=== PATIENT | female | born 1955 | race Caucasian/White ===

== ENCOUNTER 2019-09-30 18:18 | Outpatient (CLI) | payer MEDICARE, OTHER | END 2019-09-30 18:19 | disposition home or self-care (01) | LOC: COV 18:18 | PROVIDERS: ATTEND Family Medicine | DX: R53.83 Other fatigue (principal); R68.83 Chills (without fever); J02.9 Acute pharyngitis, unspecified; R19.7 Diarrhea, unspecified; R09.81 Nasal congestion; R11.0 Nausea; Z20.828 Contact with and (suspected) exposure to other viral communicable diseases ==

== ENCOUNTER 2019-11-20 06:47 | Outpatient (CLI) | payer MEDICARE, OTHER ==
--- NOTE | 2019-11-20 06:52 | XRAY Report ---
PROCEDURE: Chest 2 View X-Ray INDICATIONS: CHEST PAIN TECHNIQUE: 2 view(s) of the chest. COMPARISON: None. FINDINGS: Surgical changes and devices: None. Lungs and pleura: No pleural effusions or pneumothorax. Lungs are clear. Mediastinum: Mediastinal contours are normal. Heart size is normal. Bones and chest wall: No suspicious bony abnormalities. Soft tissues appear unremarkable. IMPRESSION: Chest without acute cardiopulmonary abnormalities. Reviewed by: Seymour Ross MD on 11/20/2019 6:51 AM PDT Approved by: Seymour Ross MD on 11/20/2019 6:51 AM PDT Station ID: [id number]
== END 2019-11-20 23:59 | disposition home or self-care (01) ==
LOC: DI.WCP 06:47
PROVIDERS: ATTEND Physician Assistant Medical
DX: R07.9 Chest pain, unspecified (principal)
CPT/HCPCS: 71046

== ENCOUNTER 2019-11-20 08:00 | Outpatient (CLI) | payer MEDICARE, OTHER ==
[2019-11-20 12:25] LABS: BASOPHILS % (AUTO) 0.7 %; EOSINOPHILS # (AUTO) 0.2 10^3/uL (0.0-0.7); EOSINOPHILS % (AUTO) 3.2 %; HGB - HEMOGLOBIN 13.4 g/dL (12.0-16.0); LYMPHOCYTES # (AUTO) 1.9 10^3/uL (1.5-3.5); LYMPHOCYTES % (AUTO) 33.3 %; MEAN CORPUSCULAR HEMOGLOBIN 29.6 pg (27.0-31.0); MEAN CORPUSCULAR HGB CONC 31.3 g/dL (32.0-36.0); MEAN CORPUSCULAR VOLUME 94.5 fL (81.0-99.0); MEAN PLATELET VOLUME 10.6 fL (7.9-10.8); MONOCYTES # (AUTO) 0.5 10^3/uL (0.0-1.0); MONOCYTES % (AUTO) 8.1 %; NEUTROPHILS # (AUTO) 3.1 10^3/uL (1.5-6.6); NEUTROPHILS % (AUTO) 54.3 %; PLT - PLATELET COUNT 238 10^3/uL (130-450); RED BLOOD COUNT 4.53 10^6/uL (4.20-5.40); RED CELL DISTRIBUTION WIDTH 12.5 % (12.0-15.0); WHITE BLOOD COUNT 5.7 x10^3/uL (4.8-10.8)
[2019-11-20 12:45] LABS: ALBUMIN 4.2 g/dL (3.2-5.5); ALBUMIN/GLOBULIN RATIO 1.3 (1.0-2.2); ALKALINE PHOSPHATASE 72 IU/L (42-121); ALT ALANINE AMINOTRANSFERASE 37 IU/L (10-60); AST ASPARTATE AMINOTRANSFERASE 26 IU/L (10-42); BILIRUBIN,TOTAL 0.6 mg/dL (0.2-1.0); BUN - BLOOD UREA NITROGEN 21 mg/dL (6-20); CALCIUM 9.4 mg/dL (8.5-10.3); CARBON DIOXIDE - CO2 23 mmol/L (21-32); CHLORIDE 108 mmol/L (101-111); CHOL/HDL RATIO 5.5 (<4.4); CHOLESTEROL 233 mg/dL; GLUCOSE 126 mg/dL (70-100); HDL CHOLESTEROL 42 mg/dL; LDL CHOLESTEROL,CALCULATED 162 mg/dL; LDL/HDL RATIO 3.9 (<4.4); SODIUM 140 mmol/L (135-145); TOTAL PROTEIN 7.4 g/dL (6.7-8.2); VLDL CHOLESTEROL 29 mg/dL
[2019-11-20 12:55] LABS: CREATININE,URINE 123.6 mg/dL; MICROALBUM/CREATININE RATIO,UR 8.1 ug/mg (<30.0)
[2019-11-20 13:19] LABS: HEMOGLOBIN A1c% 7.5 % (4.27-6.07)
== END 2019-11-20 23:59 | disposition home or self-care (01) ==
LOC: LAB.WCP 08:00
PROVIDERS: ATTEND Physician Assistant Medical
DX: E11.9 Type 2 diabetes mellitus without complications (principal); I10 Essential (primary) hypertension
CPT/HCPCS: 36415; 80053; 80061; 82043; 82570; 83036; 83721; 84443; 85025

== ENCOUNTER 2019-12-18 12:40 | Outpatient (CLI) | payer MEDICARE, OTHER ==
--- NOTE | 2019-12-18 16:35 | CARDIAC PROCEDURE NOTE ---
DATE OF SERVICE: 12/18/2019 Physician: Marry Peralta MD, MERGED WITH [facility] INDICATION: Chest pain. CARDIAC RISK FACTORS: Hypertension, hyperlipidemia, postmenopausal status, diabetes, diet controlled only. PROCEDURE: After signing informed consent, the patient underwent a Mandeep protocol, that changed into a manual protocol treadmill stress test, with nuclear myocardial perfusion imaging. RESTING HEART RATE: 56. PEAK HEART RATE: 119. RESTING BLOOD PRESSURE: 149/55. PEAK blood pressure: 242/52. The patient exercised for 5 minutes and 50 seconds, the first 3 minutes were on a Mandeep protocol. She then was changed to a manual protocol because of shortness of breath. The patient reached a peak heart rate of 119 (76% predicted maximum heart rate for age) and 5.1 METs. The patient developed shortness of breath quickly. She had no chest pain during the entire exercise. Her oxygen saturation was 94%-98% on room air throughout the entire test. The patient rated her perceived exertion at 15/20 at peak on the Toshia scale. The exercise was stopped due to fatigue and excessive BP (242 systolic), before achieving target heart rate. RESTING EKG: Sinus bradycardia, rate 56, left atrial enlargement, symmetric T- wave inversions in leads V2 through V6. EKG AT ONE MINUTE: New T-wave flattening is seen as leads II, III and aVF. EKG AT PEAK: [address] depressions are seen in leads II, III, aVF, and there is pseudonormalization of the inverted T waves in leads V2 through V6. The ST-segment depressions reverted to baseline at 3 minutes and the anterior T- wave inversions returned to her baseline at 5 minutes. SUMMARY: 1. Abnormal resting EKG. 2. Poor exercise tolerance. 3. ST-segment and T-wave changes occur with exercise at a low level of stress, suggestive of ischemia. 4. Poor blood pressure control, despite taking her Diovan today. 5. This patient's cardiac risk based on all the above: High. 6. Nuclear images showed no evidence of ischemia and normal LV function. IMPRESSION: Indeterminant, due to non-concordant findings by EKG criteria and by nuclear imaging. The nuclear findings may appear unremarkable since patient did not achieve 85% predicted maximum heart rate during exercise. RECOMMENDATIONS: 1. Better BP control. 2. Then repeat stress test with nuclear imaging, using pharmacologic stress with Lexiscan. cc: Josefina Crump PA-C TD: 12/18/2019 15:52 SAIDA
--- NOTE | 2019-12-19 12:11 | Nuclear Medicine Report ---
PROCEDURE: Rest and exercise myocardial perfusion SPECT with gated imaging and ejection fraction INDICATIONS: CHEST PAIN RADIOPHARMACEUTICAL: 8.4 mCi Tc-99m Myoview IV at rest and 23.4 mCi Tc-99m Myoview IV at peak exerci se. [id number] was performed. TECHNIQUE: Radiopharmaceutical was injected at peak stress test, and also at rest. SPECT images wer e obtained. SPECT myocardial perfusion images were displayed in short axis, horizontal long axis, an d vertical long axis views. Gated images were reviewed using Auto[employer] software. COMPARISON: None available. FINDINGS: Raw data: There is good myocardial labeling by radiotracer. No significant motion artifacts. Lung- to-heart ratio is 0.30 (normal is less than 0.38 for tetrafosmin tracer). Left ventricle function: Gated images demonstrate normal left ventricle wall thickening. No segment al wall motion abnormality. No transient ischemic dilation; TID score is 0.94 (normal less than 1.3) . The left ventricle resting end-diastolic volume is normal. Left ventricle stress ejection fractio n is >70%; normal values are above 45%. Myocardial perfusion: There is normal distribution of activity in the left and right ventricular jodi cardium. No fixed or reversible perfusion defects. IMPRESSION: 1. Normal myocardial perfusion images. No perfusion defects to suggest myocardial ischemia or infarct . 2. Normal left ventricular volume and systolic function. PQRS ATTESTATIONS: Measure 322 - Is this imaging test primarily performed on a low-risk surgery patient for preoperative evaluation within 30 days preceding their low-risk non-cardiac surgery? Low-risk surgery is defined as cardiac or myocardial infarction less than 1%, including (but not limited to) endoscopic pr ocedures, superficial procedures, cataract surgery, and excisional breast surgery: Answer: No Measure 323 - Is this imaging test performed primarily for the monitoring of an asymptomatic patient who had percutaneous coronary intervention on the visit date or within 2 years of the visit date? An swer: No Measure 324 - Is this imaging test performed primarily for the initial detection and risk assessment on an asymptomatic, low coronary heart disease patient? Low CHD risk definition = clinicians should consider the maximum number of available patient factors used to estimate risk based on Aspen (A TP III criteria), typically age, gender, diabetes, smoking status, and use of blood pressure medicati on, and integrate age appropriate estimates for missing elements, such as LDL or standard blood press ure. Answer: No Reviewed by: Gautam Braun MD on 12/19/2019 12:09 PM PST Approved by: Gautam Braun MD on 12/19/2019 12:09 PM PST Station ID: [id number]
== END 2019-12-18 12:41 | disposition home or self-care (01) ==
LOC: DI 12:40
PROVIDERS: ATTEND Physician Assistant Medical
DX: R07.9 Chest pain, unspecified (principal); R94.31 Abnormal electrocardiogram [ECG] [EKG]
CPT/HCPCS: 78452; 93017; A9500